=== PATIENT | male | born 1995 | race African-American/Black ===

== ENCOUNTER 2017-12-21 22:54 | Emergency (ER) | payer OTHER ==
[2017-12-21] MEDS ORDERED: Ondansetron HCl/PF 4 MG/2 ML Vial ONE (23:07)
[2017-12-21 23:23] LABS: #Lymphocytes 0.4 thou/uL (1.20-3.40); #Monocytes 0.5 thou/uL (0.11-0.59); #Neutrophils 5.5 thou/uL (1.40-6.50); %Basophils 0.7 % (0.0-1.0); %Eosinophils 0.7 % (0.0-10.0); %Lymphocytes 6.1 % (28.0-48.0); %Monocytes 8.3 % (0.0-4.0); %Neutrophils 84.2 % (31.0-61.0); Hemoglobin 15.2 g/dL (14.0-18.0); Mean Corpuscular HGB CONC 34.5 g/dL (32.0-36.0); Mean Corpuscular Hemoglobin 27.4 pg (25.0-35.0); Mean Corpuscular Volume 79.4 fl (77.0-87.0); Mean Platelet Volume 7.4 fL (7.4-10.4); Platelet Count 170 thou/uL (130-400); RBC Distribution Width 11.7 % (11.5-14.5); Red Blood Cell (RBC) Count 5.54 mill/uL (4.00-5.20); White Blood Cell (WBC) Count 6.5 thou/uL (4.8-10.8)
[2017-12-21 23:37] LABS: ALT (SGPT) 20 U/L (8-55); AST (SGOT) 25 U/L (5-34); Albumin 4.3 g/dL (3.5-5.0); Alkaline Phosphatase 56 U/L (Less than 750); Anion Gap 13 mmol/L (10-20); BUN (Urea Nitrogen) 15 mg/dL (8.9-20.6); Bilirubin, Total 1.2 mg/dL (0.2-1.2); Calc. Creatinine Clearance 0 mL/min (70-130); Calcium 9.3 mg/dL (7.8-10.44); Carbon Dioxide 22 mmol/L (22-29); Chloride 110 mmol/L (98-107); Estimated GFR-MDRD Greater than 90; Glucose 110 mg/dL (70-105); Lipase 38 U/L (8-78); Potassium 3.9 mmol/L (3.5-5.1); Protein, Total 7.3 g/dL (6.0-8.3); Sodium 141 mmol/L (136-145)
[2017-12-21 23:57] LABS: Clarity Clear (Clear)
[2017-12-21 23:58] LABS: Specific Gravity, Urine 1.001 (1.005-1.030)
[2017-12-21 23:59] LABS: Glucose, Urine (Dipstick) Negative (Negative); Leukocyte Negative (Negative); Nitrite Negative (Negative); Protein, Urine (Dipstick) Trace mg/dL (Neg-Trace)
[2017-12-22] LABS: Bilirubin Negative (Negative); Blood, Urine Trace (Negative); Urobilinogen 0.2 mg/dL (0.2-1.0)
[2017-12-22 00:03] LABS: Bacteria/HPF 1+ HPF (None Seen); Squamous Epithelial 0-3 HPF (0-3); WBC/HPF 0-3 HPF (0-3)
--- NOTE | 2017-12-22 08:32 | CT ---
PRELIMINARY REPORT/[facility]/EMERGENCY AFTER HOURS PROCEDURE: EXAM: CT Abdomen and Pelvis With Intravenous Contrast CLINICAL HISTORY: 22 years old, male; Pain; Abdominal pain; Localized; Right lower quadrant (rlq); Patient HX: Pt prese nts to the er for abdominal pain; Rlq pain, n/v; Additional info: Iv contrast only per er md TECHNIQUE: Axial computed tomography images of the abdomen and pelvis with intravenous contrast. All CT scans at this facility use one or more dose reduction techniques, viz.: automated exposure control; ma/kV adj ustment per patient size (including targeted exams where dose is matched to indication; i.e. head); or iterative reconstruction technique. Coronal and sagittal reformatted images were created an d reviewed. CONTRAST: 95 mL of ISOVUE 370 administered intravenously. COMPARISON: No relevant prior studies available. FINDINGS: Lung bases: Unremarkable. No mass. No consolidation. ABDOMEN: Liver: Unremarkable. No mass. Gallbladder and bile ducts: Unremarkable. No calcified stones. No ductal dilation. Pancreas: Unremarkable. No mass. No ductal dilation. Spleen: Unremarkable. No splenomegaly. Adrenals: Unremarkable. No mass. Kidneys and ureters: Unremarkable. No solid mass. No hydronephrosis. Stomach and bowel: Unremarkable. No obstruction. No mucosal thickening. PELVIS: Appendix: No findings to suggest acute appendicitis. Bladder: Unremarkable. No mass. Reproductive: Unremarkable as visualized. ABDOMEN and PELVIS: Intraperitoneal space: Unremarkable. No free air. No significant fluid collection. Bones/joints: No acute fracture. No dislocation. Soft tissues: Unremarkable. Vasculature: Unremarkable. No abdominal aortic aneurysm. Lymph nodes: Unremarkable. No enlarged lymph nodes. IMPRESSION: No acute intrabdominal or pelvic pathology. Thank you for allowing us to participate in the care of your patient. Dictated and Authenticated by: Renzo Morton MD 12/21/2017 11:56 PM Central Time ([place] & [place]) FINAL REPORT CT ABDOMEN AND PELVIS WITH CONTRAST: DATE: 12/21/17. FINDINGS: Spiral CT of the abdomen and pelvis was performed for evaluation of right lower quadrant pain. Axial slices were acquired after giving IV contrast and coronal and sagittal reconstructions were done. The lung bases are clear. The liver, spleen, pancreas, gallbladder, adrenal glands, kidneys, and abd ominal aorta all appear normal. There are fluid-filled loops of small bowel present, none of which are really distended. There is no sign of bowel obstruction or inflammatory change around bowel. I see no evidence for appendicitis. No free air or free fluid was present. CT of the pelvis showed no pelvis masses, inflammatory changes, or fluid collections. The bony struc tures were unremarkable.. IMPRESSION: Fluid-filled loops of bowel without dilation. This is a nonspecific finding and can be seen in enter itis and similar entities. There were no findings of concern otherwise. Report in agreement with preliminary reading by [facility]. POS: HOME
== END 2017-12-22 00:27 | disposition home or self-care (01) ==
LOC: BURERS 22:54
DX: R11.2 Nausea with vomiting, unspecified (principal)
CPT/HCPCS: 74177; 80053; 81003; 81015; 83690; 85025; 96361; 96374; J2405

== ENCOUNTER 2018-01-24 15:18 | Outpatient (CLI) | payer OTHER ==
--- NOTE | 2018-01-24 15:59 | RAD ---
RIGHT HAND THREE VIEWS: 01/24/18 HISTORY: Right hand injury. FINDINGS: Comminuted intra-articular fracture at the base of the fourth metacarpal is apparent with intra-artic ular gap of 0.3 cm. Posterior dislocation at the fourth carpometacarpal joint is apparent on the late ral view. Small ossific avulsion posterior to the proximal carpal row has the appearance of an old pr ocess. IMPRESSION: Comminuted intra-articular fracture base of the fourth metacarpal. Better detailed on dedicated wrist radiograph exam. Please consider immobilization and orthopedic evaluation. POS: [facility]
--- NOTE | 2018-01-24 16:00 | RAD ---
RIGHT WRIST THREE VIEWS: History: Right wrist injury. FINDINGS: Scaphoid waist is intact. Oblique fracture through the base of the fourth metacarpal is present with one-quarter shaft width posterior medial displacement. There is partial posterior dislocation at the fourth carpal metacarpal joint. An oval 0.4 cm calcification posterior to the proximal carpal row has the appearance of an old ossifi c avulsion of the triquetral. Ulna negative variant is apparent. IMPRESSION: Displaced intraarticular fracture dislocation of the fourth metacarpal base. Please consider immobili zation and orthopedic evaluation. POS: [facility]
== END 2018-01-24 15:19 | disposition home or self-care (01) ==
LOC: BURRAD 15:18
PROVIDERS: ATTEND Family Medicine
DX: M79.641 Pain in right hand (principal); S62.314A Displaced fracture of base of fourth metacarpal bone, right hand, initial encounter for closed fracture

== ENCOUNTER 2023-12-09 21:40 | Emergency (ER) | payer BC, OTHER | END 2023-12-09 22:34 | disposition home or self-care (01) | LOC: BURERS 21:40 | DX: S46.011A Strain of muscle(s) and tendon(s) of the rotator cuff of right shoulder, initial encounter (principal); V89.2XXA Person injured in unspecified motor-vehicle accident, traffic, initial encounter ==

== ENCOUNTER 2024-03-25 17:29 | Emergency (ER) | payer BC, SELFPAY | END 2024-03-25 17:47 | disposition home or self-care (01) | LOC: BURERS 17:29 | DX: S01.81XA Laceration without foreign body of other part of head, initial encounter (principal); V00-Y99 External causes of morbidity | CPT/HCPCS: 12011; 99282 ==